=== PATIENT | male | born 1990 | race Caucasian/White ===

== ENCOUNTER 2025-02-15 20:36 | Emergency (ER) | payer OTHER ==
[~2025-02-15] VITALS: Ht 182.9 cm; Wt 89.0 kg
[2025-02-15 20:44] VITALS: O2SAT 100
[2025-02-15 20:45] VITALS: BP 157/96; PULSE 92; RESP 18; TEMP 36.9; O2SAT 99
[2025-02-15] MEDS ORDERED: PRED5TAB48 MT (21:46)
[2025-02-15] MEDS: DEXAMETHASONE 10 MG/ML VIAL PO ONE (22:19)
[2025-02-15] MEDS ORDERED: AMOX500T2 MT (22:20)
== END 2025-02-15 22:21 | disposition home or self-care (01) ==
LOC: ER 20:36
DX: J32.9 Chronic sinusitis, unspecified (principal); I10 Essential (primary) hypertension; Z88.6 Allergy status to analgesic agent
CPT/HCPCS: 99283; 71045; J1100